=== PATIENT | female | born 1995 | race Caucasian/White ===

== ENCOUNTER 2019-04-15 23:31 | Emergency (ER) | payer OTHER ==
[~2019-04-15] VITALS: Ht 152.4 cm; Wt 39.9 kg
[2019-04-15 23:33] VITALS: Ht 152.4 cm; Wt 39.9 kg
[2019-04-16 01:01] VITALS: BP 103/81
== END 2019-04-16 01:01 | disposition home or self-care (01) ==
LOC: ED 23:31
DX: R51 Headache (principal); R06.4 Hyperventilation
CPT/HCPCS: J1885; J2765